=== PATIENT | male | born 1965 | race Caucasian/White ===

== ENCOUNTER 2017-08-04 07:00 | Day surgery (SDC) | payer OTHER ==
[~2017-08-04 07:00] MED LIST: LOSARTAN POTASS50 MG PO
[2017-08-04] MEDS ORDERED: MIRALAX17 GM PO (12:17)
[2017-08-04] MEDS ORDERED: PERCOCET 5-3251 EACH PO (12:17)
[2017-08-04] MEDS ORDERED: NEURONTIN300 MG PO (12:17)
== END 2017-08-04 14:30 | disposition home or self-care (01) ==
LOC: EDBD 07:00 → CIR.AMB 07:00
DX: K42.0 Umbilical hernia with obstruction, without gangrene (principal); K40.90 Unilateral inguinal hernia, without obstruction or gangrene, not specified as recurrent